=== PATIENT | male | born 1980 | race Caucasian/White ===

== ENCOUNTER 2020-06-08 10:07 | Emergency (ER) | payer OTHER, SELFPAY ==
--- NOTE | 2020-06-08 10:20 | DI.RAD.S_ITS ---
PROCEDURE: XR SHOULDER LT MIN 2V INDICATIONS: fell onto shoulder, feels like its dislocated TECHNIQUE: 3 views of the shoulder were acquired. COMPARISON: None. FINDINGS: Bones: No fractures or dislocations. No suspicious bony lesions. Visualized ribs appear intact. Soft tissues: No suspicious soft tissue calcifications. The visualized lung demonstrates an unremarkable appearance. IMPRESSION: Normal shoulder plain films. Negative for dislocation. If it would be helpful for clinical management decision making, please consider a dedicated, scheduled shoulder MRI for further evaluation (assuming that there is no contraindication). If there is strong clinical concern for a labral abnormality, this should be performed according to the arthrogram protocol. Dictated by: Vasquez Nance M.D. on 06/08/2020 at 9:46 Approved by: Vasquez Nance M.D. on 06/08/2020 at 9:47
[2020-06-08 10:21] VITALS: BP 134/87; PULSE 71; RESP 18; TEMP 36.6; O2SAT 98; BMI 28.8
--- NOTE | 2020-06-08 10:57 | ED.UPPEXIN ---
HPI - Extremity Injury (Upper) <BAUDILIO Kang - Last Filed: 06/08/20 12:45> General Chief Complaint: Extremity Injury, Upper Stated Complaint: dislocated shoulder left side Time Seen by Provider: 06/08/20 10:42 Source: patient and family Mode of arrival: Ambulatory Limitations: no limitations History of Present Illness HPI narrative: The patient is a 39-year-old male nonsmoker who denies pertinent medical history presents with his with a chief complaint of an injury to his left shoulder. He states that he tripped while at [employer], landed with his arms out in landed on the ground super man style. Did not hit his head. No neck or back pain. States that this is an isolated shoulder injury. Denies any previous injuries to his left shoulder. He states that he feels his left shoulder, popping in and out. He has not taken anything for pain. He was evaluated by EMS. He denies any pain of his left shoulder, wrist pain and states that he can not move his left wrist well Related Data Previous Rx's Medication Instructions Recorded ketorolac 10 mg PO Q6H PRN #14 tab 06/08/20 Allergies Allergy/AdvReac Type Severity Reaction Status Date / Time No Known Drug Allergies Allergy Verified 06/08/20 10:21 Review of Systems <BAUDILIO Kang - Last Filed: 06/08/20 12:45> Review of Systems Narrative: GENERAL: Denies chills, fatigue, malaise, fever, sweats. HEENT: Denies sinus pain, ear pain, sore throat, difficulty swallowing, dizziness. RESPIRATORY: Denies dyspnea, cough, wheezing, hemoptysis, sputum. CARDIOVASCULAR: Denies chest pain, palpitations, orthopnea, edema, GASTROINTESTINAL: Denies nausea, vomiting, abdominal pain, diarrhea, constipation, melena. : Denies dysuria, frequency, incontinence, hematuria, urinary retention. MUSCULOSKELETAL: See HPI. SKIN: Denies rash, skin lesions, or other NEUROLOGIC: Denies weakness, headache, numbness, change in speech, confusion, seizures, incoordination. PSYCHIATRIC: No concerning psychosocial issues. 12 point review of systems is negative except for those stated above Patient History <BAUDILIO Kang - Last Filed: 06/08/20 12:45> Social History Smoking Status: Never smoker Smoking Status: Never smoker alcohol intake frequency: a few times a week Exam <BAUDILIO Kang - Last Filed: 06/08/20 12:45> Narrative Exam Narrative: GENERAL: This is a well-nourished, well-developed patient, in no acute distress HEAD: Atraumatic. Normocephalic. No temporal or scalp tenderness. EYES: Pupils equal round and reactive. Extraocular motions intact. No scleral icterus. No injection or drainage. ENT: Nose without bleeding, purulent drainage or septal hematoma. Throat without erythema, tonsillar hypertrophy or exudate. Uvula midline. Airway patent. NECK: Trachea midline. No JVD or lymphadenopathy. Supple, nontender, no meningeal signs. CARDIOVASCULAR: Regular rate and rhythm without murmurs, gallops, or rubs. RESPIRATORY: Clear to auscultation. Breath sounds equal bilaterally. No wheezes, rales, or rhonchi. GASTROINTESTINAL: Abdomen soft, non-tender, nondistended. No hepato-splenomegaly, or palpable masses. No guarding. EXTREMITIES: Generalized pain to palpation noted left shoulder, no pain to palpation noted left wrist or elbow, able to flex and extend left wrist and elbow. Positive left radial pulse cap refill less than 2 seconds all fingers left hand. Left shoulder decreased range of motion all marcano, negative empty can test BACK: No pain to palpation of CT or L-spine NEURO: AOx3. SKIN: No rash or erythema on visible skin. No erythema laceration or abrasion noted left shoulder. Initial Vital Signs Initial Vital Signs: Vital Signs Temperature 97.8 F 06/08/20 10:21 Pulse Rate 71 06/08/20 10:21 Respiratory Rate 18 06/08/20 10:21 Blood Pressure 134/87 06/08/20 10:21 Pulse Oximetry 98 06/08/20 10:21 <Sandrita Elkins DO - Last Filed: 06/11/20 07:22> Initial Vital Signs Initial Vital Signs: Vital Signs Temperature 97.8 F 06/08/20 10:21 Pulse Rate 71 06/08/20 10:21 Respiratory Rate 18 06/08/20 10:21 Blood Pressure 134/87 06/08/20 10:21 Pulse Oximetry 98 06/08/20 10:21 Course <BAUDILIO Kang - Last Filed: 06/08/20 12:45> Orders Ordered: Discontinued Medications Ketorolac Tromethamine (Ketorolac 60 Mg/2 Ml Vial) 30 mg IM NOW ONE Stop: 06/08/20 10:55 Last Admin: 06/08/20 11:00 Dose: 30 mg Documented by: GIA Vital Signs Vital signs: Vital Signs - 8 hr 06/08/20 10:21 06/08/20 12:40 Temperature 97.8 F Pulse Rate 71 61 Respiratory Rate 18 18 Blood Pressure 134/87 123/83 Pulse Oximetry 98 98 <Sandrita Elkins DO - Last Filed: 06/11/20 07:22> Orders Ordered: Discontinued Medications Ketorolac Tromethamine (Ketorolac 60 Mg/2 Ml Vial) 30 mg IM NOW ONE Stop: 06/08/20 10:55 Last Admin: 06/08/20 11:00 Dose: 30 mg Documented by: GIA Vital Signs Vital signs: Vital Signs - 8 hr 06/08/20 10:21 06/08/20 12:40 Temperature 97.8 F Pulse Rate 71 61 Respiratory Rate 18 18 Blood Pressure 134/87 123/83 Pulse Oximetry 98 98 MDM - Extremity Injury (Upper) <MAURICE KangBC - Last Filed: 06/08/20 12:45> Imaging Data Extremity x-ray #1: Radiologist's Impression: [address] [id number] ReportSigned Patient: Gregory Dias PMR#: [id number]: 1980Acct:[id number]/Sex: 39 / MDate of Service: 06/08/20Loc: EDAccession Number: [id number] Procedure: XR shoulder LT min 2V Ordering Provider: Sandrita Elkins D.O. PROCEDURE: XR SHOULDER LT MIN 2V INDICATIONS: fell onto shoulder, feels like its dislocated TECHNIQUE: 3 views of the shoulder were acquired. COMPARISON: None. FINDINGS: Bones: No fractures or dislocations. No suspicious bony lesions. Visualized ribs appear intact. Soft tissues: No suspicious soft tissue calcifications. The visualized lung demonstrates an unremarkable appearance. IMPRESSION: Normal shoulder plain films. Negative for dislocation. If it would be helpful for clinical management decision making, please consider a dedicated, scheduled shoulder MRI for further evaluation (assuming that there is no contraindication). If there is strong clinical concern for a labral abnormality, this should be performed according to the arthrogram protocol. Dictated by: Vasquez Nance M.D. on 06/08/2020 at 9:46 Approved by: Vasquez Nance M.D. on 06/08/2020 at 9:47 MDM Narrative Medical decision making narrative: The patient is a 39-year-old male who presents with a chief complaint of ?I dislocated my shoulder.? He is neurovascularly intact throughout his stay, does have reassuring range of motion and no visible deformity fracture or dislocation on x-ray. He was given Toradol in the emergency department, which she states greatly improved his pain and was given a prescription thereof. I encouraged him to follow up with primary care provider in the next few days as he may benefit from more imaging physical therapy etcetera. We discussed that though x-ray does not rule out soft tissue injury, his range of motion is reassuring. Discussed coming back to ER for acute concerns. Patient declines work note. No questions or concerns upon discharge states understanding of return precautions as well as follow-up care. Discharge Plan Departure Patient Disposition: Home Clinical Impression: Acute shoulder pain Qualifiers: Laterality: left Qualified Code(s): M25.512 - Pain in left shoulder Instructions: How to Use a Sling, DI for Shoulder Sprain, DI for Shoulder Pain Activity Restrictions/Additional Instructions: As I discussed, your x-ray shows no acute fracture. This does not rule out a soft tissue injury such as a ligament or tendon injury. It is important that you follow up with primary care provider, especially if worsening or no improvement. There can be fractures that did not show up on initial x-ray. Please follow-up with primary care provider in the next few days. You may benefit from further evaluation, imaging etcetera I have given you a prescription of Toradol. This is an NSAID. Do not combine it with other NSAIDs such as Aleve or ibuprofen. I suggest taking it with some food, as it can irritate your stomach. I sent this prescription to [facility] in [place] As discussed, please come back to the ER for acute concerns such as decreased circulation to your fingers As discussed, please be wary of using the sling continuously as this can increase your chance of frozen shoulder Prescriptions: New ketorolac 10 mg tablet 10 mg PO Q6H PRN (Reason: pain) Qty: 14 RF: 0 [facility]] Raj Calderon MD [Non-Staff] - <Sandrita Elkins DO - Last Filed: 06/11/20 07:22> Cosign ED Attending Davidature Attestation: I was immediately available in the department for consultation. Documentation has been reviewed. I agree with assessment and plan.
[2020-06-08] MEDS: KETOROLAC 60 MG/2 ML VIAL 30 MG IM (11:00)
[2020-06-08 12:40] VITALS: BP 123/83; PULSE 61; RESP 18; O2SAT 98
== END 2020-06-08 12:41 | disposition home or self-care (01) ==
PROVIDERS: Emergency Provider Nurse Practitioner Family
DX: M25.512 Pain in left shoulder (principal); W19.XXXA Unspecified fall, initial encounter
CPT/HCPCS: 73030; 96372; 99283; J1885

== ENCOUNTER → 2020-07-19 06:33 | Outpatient (CLI) | payer OTHER, SELFPAY ==
--- NOTE | 2020-07-19 | DI.MRI.S_ITS ---
PROCEDURE: MR SHOULDER LT WO CON INDICATIONS: Unspecified superficial injury of left shoulder TECHNIQUE: Noncontrast oblique coronal T2 fast spin echo with fat saturation, oblique sagittal T1 spin echo and T2 fast spin echo with fat saturation, axial T1 spin echo and T2 fast spin echo with fat saturation through the shoulder. COMPARISON: [facility], CR, XR SHOULDER LT MIN 2V, 06/08/2020, 10:31. FINDINGS: Image quality: Excellent. Rotator cuff: Tendinosis and moderate grade articular and bursal surface partial-thickness tear at its insertion on the humeral head is seen extending to musculotendinous junction. Distal infraspinatus and subscapularis tendinosis is seen. No full-thickness rotator cuff tendon rupture. Sagittal images demonstrate no significant muscle atrophy. Bones and bursae: There is marrow edema involving superior and lateral portion of humeral head near rotator cuff tendon search in without discrete fracture line or cortical disruption. No other area of abnormal marrow signal is seen. Moderate acromioclavicular joint osteoarthritic changes are seen with downward osteophyte formation depressing the musculotendinous junction of supraspinatus. Mild to moderate glenohumeral joint osteoarthritic changes also noted.. Small to moderate amount of subacromial subdeltoid bursal fluid is noted. Capsule and soft tissues: There is no definite superior labral tear. Inferior labral signal abnormality and contour irregularity is seen extending from 5-7 o'clock position suggestive of inferior labral tear. The glenohumeral ligaments are grossly intact. The long head of the biceps tendon demonstrates normal location and morphology. The rotator interval appears normal, without fibrosis. The coracohumeral ligament is normal in thickness. IMPRESSION: 1. Tendinosis and moderate grade articular and bursal surface partial thickness tear involving distal supraspinatus extending to musculotendinous junction. Distal infraspinatus and subscapularis tendinosis. No full-thickness rotator cuff tendon rupture. 2. Moderate acromioclavicular joint osteoarthritis. Mild to moderate glenohumeral joint osteoarthritis. Moderate amount of subacromial subdeltoid bursal fluid. 3. Suggestion of inferior labral tear at 5 to 7 o'clock position. Dictated by: Raul Mitchell M.D. on 07/19/2020 at 9:39 Approved by: Raul Mitchell M.D. on 07/19/2020 at 9:52
== END ==
PROVIDERS: Referring Provider Student in an Organized Health Care Education/Training Program; Visit Provider Student in an Organized Health Care Education/Training Program
DX: S40.912A Unspecified superficial injury of left shoulder, initial encounter (principal); M19.011 Primary osteoarthritis, right shoulder
CPT/HCPCS: 73221

== ENCOUNTER → 2020-09-18 10:47 | Outpatient (CLI) | payer OTHER, SELFPAY ==
--- NOTE | 2020-09-18 | DI.MRI.S_ITS ---
PROCEDURE: MR SHOULDER LT W CON INDICATIONS: LEFT SHOULDER INSTABILITY TECHNIQUE: After the administration of 12 mL of dilute intra-articular Gadolinium contrast, oblique coronal T1 and T2 spin echo with fat saturation, oblique sagittal T1 spin echo with and without fat saturation, oblique sagittal T2 fast spin echo with fat saturation, axial T1 spin echo with fat saturation through the shoulder. COMPARISON: [facility], MR, MR SHOULDER LT WO CON, 07/19/2020, 6:58. [facility], RF, [place] SHOULDER INJECTION MR/CT LT, 09/18/2020, 12:43. FINDINGS: Image quality: Excellent. Rotator cuff: There is mild supraspinatus tendinosis. The infraspinatus, and subscapularis tendons appear intact throughout. There is mild grade 2 fatty infiltration of the teres minor muscle that is nonspecific, but may be related to chronic denervation changes. The remaining rotator cuff musculature is normal in bulk. Bones and bursae: There is no acute trabecular bone injury. There is a possible subtle shallow chronic Hill-Sachs lesion in the posterosuperior humeral head versus chronic traction cystic changes. The glenoid is intact. Moderate degenerative changes are again seen at the acromioclavicular joint with subchondral cystic changes and edema. There is trace subacromial/subdeltoid bursal fluid. Capsule and soft tissues: There is a subtle nondisplaced tear of the anteroinferior labrum with more prominent tearing extending into the anterior, superior, and posterosuperior labrum. The posteroinferior labrum appears to be intact. A lobular paralabral cyst is seen extending medially from the posterior labrum measuring approximately 9 x 9 x 9 mm. The biceps long head tendon is intact. No intra-articular loose body is seen. IMPRESSION: 1. Nearly circumferential nondisplaced tearing of the glenoid labrum with relative sparing of the posteroinferior labrum. A 9 mm paralabral cyst is seen at the posterior labrum extending medially over the glenoid rim. No atrophy of the infraspinatus muscle is seen. 2. Mild supraspinatus tendinosis. 3. Mild grade 2 fatty infiltration of the infraspinatus muscle may be related to chronic denervation changes. No mass is seen along the course of the axillary nerve. 4. Moderate acromioclavicular joint osteoarthrosis. Dictated by: Dionisio Moulton M.D. on 09/18/2020 at 15:34 Approved by: Dionisio Moulton M.D. on 09/18/2020 at 15:55
--- NOTE | 2020-09-18 | DI.RAD.S_ITS ---
PROCEDURE: FL SHOULDER INJECTION MR/CT LT INDICATIONS: LEFT SHOULDER INSTABILITY COMPARISON: None. TECHNIQUE: The indications, alternatives, benefits, risks, and complications of the procedure were explained to the patient. Written informed consent was obtained and placed in the chart. The shoulder was examined fluoroscopically and a site for needle placement chosen for entry into the glenohumeral joint from an anterior approach. The skin was prepped and draped in a sterile fashion, and 1% lidocaine infiltrated from skin down to joint capsule. A spinal needle was inserted into the glenohumeral joint, and a small amount of iodinated contrast media injected to confirm intra-articular placement of the needle tip. This was followed by approximately 12 mL dilute solution of a gadolinium containing MR contrast agent. The needle was removed and a dressing was applied. The patient was given postprocedural instructions and sent to the MR suite for MR imaging. FINDINGS: A single fluoroscopic spot image demonstrates intra-articular location of injected iodinated contrast. IMPRESSION: Successful fluoroscopically guided administration of dilute Gadolinium solution into the shoulder joint for MR arthrogram. Dictated by: Steve Donovan M.D. on 09/18/2020 at 14:40 Approved by: Steve Donovan M.D. on 09/18/2020 at 14:40
== END ==
PROVIDERS: Referring Provider Orthopaedic Surgery; Visit Provider Orthopaedic Surgery
DX: M25.312 Other instability, left shoulder (principal); S43.439A Superior glenoid labrum lesion of unspecified shoulder, initial encounter
CPT/HCPCS: 23350; 73222; 77002